=== PATIENT | male | born 1960 | race Caucasian/White ===

== ENCOUNTER 2019-06-01 13:30 | Inpatient (IN) | payer MEDICARE, OTHER ==
[~2019-06-01] VITALS: Ht 162.6 cm; Wt 68.0 kg
[~2019-06-01 13:30] MED LIST: AMPH15TA2 PO; BUPR-51 PO; BUPR150T5 PO; DIPH-530 PO; GABA-532 PO; OXYC-454 PO; QUET25TA PO; TRIA15OI2 TP
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
[2019-06-01] MEDS ORDERED: HYDR-4384 PO (13:50)
[2019-06-01] MEDS ORDERED: BUPR75TA21 PO (13:50)
--- NOTE | 2019-06-01 14:00 | NUR ---
GPS/RN-NOTES DR. REYEZ COVERING FOR DR. HASTINGS MADE AWARE OF PATIENT ADMISSION WITH ORDERS. NOTED AND CARRIED OUT.
[2019-06-01] MEDS ORDERED: LORAZEPAM 0.5 MG TABLET PO PRN (14:30)
[2019-06-01] MEDS ORDERED: TEMAZEPAM 7.5 MG CAPSULE PO PRN (14:30)
[2019-06-01] MEDS ORDERED: BLOOD SUGAR DIAGNOSTIC 1 EACH STRIP IN ONE (14:30)
[2019-06-01] MEDS ORDERED: MAG HYDROX/AL HYDROX/SIMETH 30 ML UDC PO PRN (14:30)
[2019-06-01] MEDS ORDERED: ACETAMINOPHEN 325 MG TABLET PO PRN (14:30)
[2019-06-01] MEDS ORDERED: MAGNESIUM HYDROXIDE 30 ML UDC PO PRN (14:30)
[2019-06-01 16:00] VITALS: BP 118/96
[2019-06-01] MEDS ORDERED: GABAPENTIN 100 MG CAPSULE PO SCH (17:00)
[2019-06-01] MEDS ORDERED: buPROPion 75 MG TABLET PO SCH (17:00)
[2019-06-01] MEDS: HYDROCODONE/APAP 5/325MG 1 EACH TABLET PO PRN (18:13)
[2019-06-01 20:00] VITALS: BP 102/59
[2019-06-01] MEDS: ZOLPIDEM TARTRATE 10 MG TABLET PO PRN (21:10)
--- NOTE | 2019-06-01 21:10 | NUR ---
GPS-RN NOTE: INSOMNIA PATIENT C/O INABILITY TO SLEEP. ADMINISTERED AMBIEN 10MG PO ORDERED PER PATIENT'S REQUEST. WILL CONTINUE TO MONITOR PT'S SAFETY.
[2019-06-02] MEDS: HYDROCODONE/APAP 5/325MG 1 EACH TABLET PO PRN ×3 (05:24→19:30)
--- NOTE | 2019-06-02 05:24 | NUR ---
GPS-RN NOTE: C/O SHOULDER PAIN PATIENT C/O SHOULDER PAIN ON A PAIN SCALE OF 8/10. ADMINISTERED NORCO 5/325MG PO ORDERED PER PT'S REQUEST. WILL CONTINUE TO MONITOR THE EFFECTIVENESS OF THE MEDICATION.
[2019-06-02 07:29] LABS: ALBUMIN 3.7 g/dL (3.4-5.0); BILIRUBIN,TOTAL 0.6 mg/dL (0.2-1.0); CREATININE 0.9 mg/dL (0.6-1.3)
[2019-06-02 07:39] LABS: CHOLESTEROL 217 mg/dL (<200); HDL CHOLESTEROL 52 mg/dL (40-60); LDL 139 mg/dL (0-99); TRIGLYCERIDES 133 mg/dL (30-150)
[2019-06-02 09:09] VITALS: BP 123/87
--- NOTE | 2019-06-02 09:55 | NUR ---
GPS-RN NOTE-NOTES PATIENT C/O SHOULDER PAIN ON 09/20. REQUESTING FOR NORCO.NORCO 5/325MG 1 TAB P.O GIVEN PRN ORDER. WILL CONT. MONITORING FOR SAFETY.
[2019-06-02] MEDS: LORAZEPAM 1 MG TABLET PO PRN (10:50)
--- NOTE | 2019-06-02 10:52 | NUR ---
GPS/RN-NOTES PATIENT STATED" CAN YOU GIVE ME ATIVAN, I'M GETTING ANXIOUS". ATIVAN 1MG P.O GIVEN PRN ORDER. WILL CONT. MONITORING FOR SAFETY AND BEHAVIOR.
--- NOTE | 2019-06-02 11:30 | NUR ---
GPS/RN-NOTES PATIENT WATCHING TV IN THE DAY ROOM ,CALM NO ACUTE DISTRESS NOTED.
[2019-06-02] MEDS ORDERED: buPROPion SR 100 MG TABLET.ER PO SCH (13:00)
[2019-06-02] MEDS: GABAPENTIN 300 MG CAPSULE PO SCH ×2 (13:32→16:52)
[2019-06-02 16:00] VITALS: BP 114/68
[2019-06-02 20:00] VITALS: BP 103/71
[2019-06-02] MEDS: ZOLPIDEM TARTRATE 10 MG TABLET PO PRN (21:21)
[2019-06-02 23:04] VITALS: BP 103/76
[2019-06-03] MEDS: LORAZEPAM 1 MG TABLET PO PRN ×3 (03:15→18:51)
[2019-06-03] MEDS: HYDROCODONE/APAP 5/325MG 1 EACH TABLET PO PRN ×3 (05:41→17:49)
[2019-06-03 08:00] VITALS: BP 120/78
[2019-06-03] MEDS: GABAPENTIN 300 MG CAPSULE PO SCH ×3 (08:13→16:08)
--- NOTE | 2019-06-03 08:54 | NUR ---
GPS RN NOTE: RECEIVED PATIENT AMBULATING WITH STEADY GAIT IN HALLWAY. PAIN 6/10 MANAGED WITH MEDICATION. PATIENT IS COOPERATIVE, CALM, NO SIGNS OF DISTRESS NOTED. COOPERATIVE WITH MEDICATION REGIMEN AND PLAN OF CARE. PATIENT DENIES SI/HI AND VAH. STATES THAT HE IS FEELING BETTER PHYSICALLY AND MENTALLY. ENVIRONMENTAL CHECKS DONE. WILL CONTINUE TO MONITOR PT Q15 FOR MOOD, SAFETY AND BEHAVIOR
[2019-06-03] MEDS ORDERED: buPROPion SR 100 MG TABLET.ER PO SCH (09:00)
[2019-06-03] MEDS ORDERED: buPROPion SR 150 MG TABLET.ER PO SCH ×2 (09:00→21:00)
[2019-06-03] MEDS ORDERED: VITAMINS A AND D 56.7 GM TUBE TP PRN (10:00)
[2019-06-03] MEDS ORDERED: VITAMIN E 56.7 GM JAR TP PRN (10:00)
[2019-06-03 16:00] VITALS: BP 121/72
[2019-06-03] MEDS: buPROPion SR 100 MG TABLET.ER PO SCH (16:57)
[2019-06-03 21:09] VITALS: BP 123/78
[2019-06-04] MEDS: ZOLPIDEM TARTRATE 10 MG TABLET PO PRN ×2 (01:02→21:40)
--- NOTE | 2019-06-04 01:04 | NUR ---
Pt c/o insomnia. Least restrictive measures ineffective. Ambien 10 mg 1 tab po prn given as ordered. Will continue to monitor.
--- NOTE | 2019-06-04 02:02 | NUR ---
Conrado effective. Post 1 hour pt asleep in bed easy to arouse. Will continue to monitor.
[2019-06-04] MEDS: LORAZEPAM 1 MG TABLET PO PRN ×2 (03:07→10:14)
--- NOTE | 2019-06-04 03:11 | NUR ---
Pt c/o of anxiety. Least restrictive measures ineffective. Ativan 1 mg po prn given as ordered. Will continue to monitor.
--- NOTE | 2019-06-04 04:11 | NUR ---
Post 1 hour Ativan effective. Pt calm and asleep in bed easy to arouse. Will continue to monitor.
[2019-06-04] MEDS: HYDROCODONE/APAP 5/325MG 1 EACH TABLET PO PRN ×3 (06:50→16:03)
--- NOTE | 2019-06-04 06:52 | NUR ---
Pt c/o right shoulder pain 09/20. [place] 5/325 mg po prn given as ordered. Will continue to monitor.
[2019-06-04 08:00] VITALS: BP 120/84
[2019-06-04] MEDS: GABAPENTIN 300 MG CAPSULE PO SCH ×3 (08:36→16:03)
[2019-06-04] MEDS: buPROPion SR 100 MG TABLET.ER PO SCH (08:36)
--- NOTE | 2019-06-04 12:47 | NUR ---
Initial Discharge Plan: Pt is currently homeless and states that he requires placement. SW will work with the pt and the MD regarding appropriate discharge planning. SW will form a safe and proper discharge plan.
--- NOTE | 2019-06-04 15:14 | NUR ---
Group Note: SW encouraged the pt to participate in group therapy on 06/04/19 at 2pm discussing discharge planning. Pt presented in his room, on his bed, and was asleep. Pt stated that he did not want to participate because he wanted to get some sleep as he was having difficulty with it. Pt stated that he already spoke to the SW earlier today when she conducted the psychosocial that he needs a place to stay at and that he would accept correction placement.
[2019-06-04 16:00] VITALS: BP 116/69
[2019-06-04 20:12] VITALS: BP 127/84
--- NOTE | 2019-06-04 21:41 | NUR ---
GPS RN NOTES: INSOMNIA UPON DOING ROUNDS, PT AWAKE. PT STATED, "I CANT SLEEP. CAN I HAVE A SLEEPING MEDICATION?" OFFERED AMBIEN 10MG PO PRN ORDERED. PT AGREED AND TOLERATED MEDICATION WELL. CONTINUE TO MONITOR.
[2019-06-05 00:45] VITALS: BP 116/92
[2019-06-05] MEDS: HYDROCODONE/APAP 5/325MG 1 EACH TABLET PO PRN ×4 (00:55→17:58)
--- NOTE | 2019-06-05 00:58 | NUR ---
GPS RN NOTE: C/O SHOULDER PAIN PATIENT C/O SHOULDER PAIN ON A PAIN SCALE OF 9/10. PT REQUESTED "PAIN MEDICATION". CHECKED VITALS WHICH IS WNL. OFFERED NORCO 5/325 MG PO PRN ORDERED. ADMINISTERED MEDICATION PER PT'S REQUEST. WILL CONTINUE TO MONITOR THE EFFECTIVENESS OF THE MEDICATION.
[2019-06-05] MEDS: LORAZEPAM 1 MG TABLET PO PRN ×3 (04:35→20:12)
--- NOTE | 2019-06-05 04:36 | NUR ---
GPS RN NOTES: ANXIOUS PT C/O FEELING ANXIOUS. PT STATED, " I NEED MY ATIVAN." VITALS TAKEN AND WNL. NO S/S OF RESP DISTRESS. BREATHING EVEN AND UNLABORED. NO S/S OF SOB. OFFERED ATIVAN 1MG PO PRN ORDERED. PT AGREED AND TOLERATED MEDICATION WELL. CONTINUE TO MONITOR.
[2019-06-05 08:00] VITALS: BP 126/79
[2019-06-05] MEDS: GABAPENTIN 300 MG CAPSULE PO SCH ×3 (08:24→16:34)
[2019-06-05] MEDS: buPROPion SR 100 MG TABLET.ER PO SCH (08:24)
--- NOTE | 2019-06-05 09:51 | NUR ---
GPS RN NOTE: RECEIVED PATIENT AMBULATING WITH STEADY GAIT IN HALLWAY. PAIN 8/10 MANAGED WITH MEDICATION. PATIENT IS COOPERATIVE, CALM, NO SIGNS OF DISTRESS NOTED BUT EASILY IRRITATED. COOPERATIVE WITH MEDICATION REGIMEN AND PLAN OF CARE. PATIENT DENIES SI/HI AND VAH. SHOWERED THIS MORNING AND PERFORMED AM CARE. WELL GROOMED. ENVIRONMENTAL CHECKS DONE. WILL CONTINUE TO MONITOR PT Q15 FOR MOOD, SAFETY AND BEHAVIOR
--- NOTE | 2019-06-05 10:20 | NUR ---
Substance Abuse Intervention: SW conducted a substance abuse intervention with the pt regarding his cannabis use.
--- NOTE | 2019-06-05 10:47 | NUR ---
SNF Referral: DONALD faxed a referral to [facility] with attn to Kimberlee to the fax number: [phone].
--- NOTE | 2019-06-05 15:32 | NUR ---
SNF Contact: Shirin ([phone]) from [facility] contacted the and stated that the facility is full at this time.
--- NOTE | 2019-06-05 15:35 | NUR ---
Group Note: SW encouraged the pt to participate in group therapy on 06/05/19 at 2pm discussing urges. Pt stated that he did not want to participate in group and that he was worried about his belongings from the previous hospital. SW stated that she had called and is waiting for a response. SW asked the pt to discuss any of his urges and he stated that he had suicidal urges to take his life and he has urges to take drugs but at this time he does not feel that way anymore.
[2019-06-05 16:00] VITALS: BP 132/87
--- NOTE | 2019-06-05 17:12 | NUR ---
RN-CO: We tried to contact/trace patient's belongings in [facility] [phone]. They said to call back tomorrow.
[2019-06-05 20:00] VITALS: BP 130/77
[2019-06-05 20:12] VITALS: BP 130/77
--- NOTE | 2019-06-05 20:14 | NUR ---
GPS RN notes Pt is feeling anxious and requesting ativan. Administered ativan 1 mg as ordered for anxiety per Pt request. VS is stable. Safety precautions is maintained. Will continue to monitor.
--- NOTE | 2019-06-05 23:05 | NUR ---
GPS RN notes Transfer of care to [facility].
--- NOTE | 2019-06-05 23:10 | NUR ---
GPS RN OPENING NOTE RECEIVED REPORT FROM [facility]. TOLERATING ROOM AIR. NO S/S OF PAIN. NO DISTRESS NOTED. PATIENT CURRENTLY ASLEEP. WILL CONTINUE TO MONITOR.
--- NOTE | 2019-06-05 23:50 | NUR ---
TRANSFER OF CARE TO [facility].
--- NOTE | 2019-06-05 23:51 | NUR ---
GPS RN notes Received Pt back from [facility].
[2019-06-05] MEDS: ZOLPIDEM TARTRATE 10 MG TABLET PO PRN (23:53)
[2019-06-06] MEDS: HYDROCODONE/APAP 5/325MG 1 EACH TABLET PO PRN ×4 (04:40→20:53)
--- NOTE | 2019-06-06 04:44 | NUR ---
GPS RN notes Pt is complaining of pain on right shoulder and requesting pain medication. Administered norco5-325mg/1 tab/po as ordered for pain. Safety precautions is maintained. Will continue to monitor.
[2019-06-06 08:00] VITALS: BP 121/74
[2019-06-06] MEDS: MULTIVIT W/MINERALS 1 TAB TABLET PO SCH (08:21)
[2019-06-06] MEDS: GABAPENTIN 300 MG CAPSULE PO SCH ×3 (08:21→16:01)
[2019-06-06] MEDS: buPROPion SR 100 MG TABLET.ER PO SCH ×2 (08:21→16:01)
[2019-06-06] MEDS: ASCORBIC ACID 500 MG TABLET PO SCH (08:21)
--- NOTE | 2019-06-06 08:41 | NUR ---
GPS RN NOTE: RECEIVED PATIENT SITTING IN HALLWAY WITH NO SIGNS OF ACUTE DISTRESS. PAIN 6/10. ALLEVIATED WITH HOT PACK AND MEDICATION. PATIENT RESPIRATIONS EVEN AND UNLABORED. BLOOD DRAWN THIS AM FOR THYROID STIMULATING HORMONE. PATIENT IS EASILY IRRITATED AND ANGERED. RUMINATING AND NEGATIVE. UPSET ABOUT BELONGINGS LEFT BEHIND AT PREVIOUS HOSPITAL. ENVIRONMENTAL CHECKS DONE. WILL CONTINUE TO MONITOR PATIENT Q15 FOR MOOD, SAFETY AND BEHAVIOR.
--- NOTE | 2019-06-06 09:23 | NUR ---
SNF Referral: DONALD faxed a referral to [facility] with attn to BANDAR and Edson to the fax number: [phone].
[2019-06-06] MEDS: LORAZEPAM 1 MG TABLET PO PRN (12:56)
--- NOTE | 2019-06-06 12:56 | NUR ---
GPS RN NOTE: ANXIETY PATIENT IRRITABLE AND ANXIOUS. REQUESTED ATIVAN. ADMINISTERED 1MG PO ORDERED. WILL CONTINUE TO MONITOR Q15 FOR MOOD, SAFETY AND BEHAVIOR
[2019-06-06 16:00] VITALS: BP 122/82
[2019-06-06 20:26] VITALS: BP 117/88
[2019-06-07] MEDS: ZOLPIDEM TARTRATE 10 MG TABLET PO PRN (00:14)
--- NOTE | 2019-06-07 00:16 | NUR ---
GPS RN NOTES: INSOMNIA UPON DOING ROUNDS, PT AWAKE. PT STATED, "CAN I HAVE A SLEEPING MEDICATION?" OFFERED AMBIEN 10MG PO PRN ORDERED. PT AGREED AND TOLERATED MEDICATION WELL. CONTINUE TO MONITOR.
[2019-06-07] MEDS: LORAZEPAM 1 MG TABLET PO PRN ×2 (04:26→12:11)
--- NOTE | 2019-06-07 04:30 | NUR ---
GPS RN NOTES: ANXIOUS UPON DOING ROUNDS, PT TELLING ROOMMATE, "BE QUIET!" PT C/O FEELING ANXIOUS BECAUSE ROOMMATE IS MAKING "NOISE". PT STATED, " CAN I HAVE AN ATIVAN PLEASE?" NO S/S OF RESP DISTRESS. BREATHING EVEN AND UNLABORED. NO S/S OF SOB. OFFERED ATIVAN 1MG PO PRN ORDERED. PT AGREED AND TOLERATED MEDICATION WELL. CONTINUE TO MONITOR.
[2019-06-07 08:00] VITALS: BP 100/66
--- NOTE | 2019-06-07 08:00 | NUR ---
RECEIVED PATIENT LAYING IN BED AWAKE. PT IS CALM AT THIS TIME, NEEDY, AND QUIET. NO ACUTE DISTRESS NOTED. BREATHING EVEN AND UNLABORED.NO S/S OF SOB.NEEDS ATTENDED AND ANTICIPATED. AMBULATORY STEADY GAIT. NO SI OR HI AT THIS TIME. CALL [facility] WITHIN REACH. WILL CONT. MONITORING Q15 MINS. FOR SAFETY AND BEHAVIOR.
[2019-06-07] MEDS: buPROPion SR 100 MG TABLET.ER PO SCH ×2 (08:49→16:12)
[2019-06-07] MEDS: MULTIVIT W/MINERALS 1 TAB TABLET PO SCH (08:50)
[2019-06-07] MEDS: ASCORBIC ACID 500 MG TABLET PO SCH (08:50)
[2019-06-07] MEDS: GABAPENTIN 300 MG CAPSULE PO SCH ×3 (08:50→16:11)
--- NOTE | 2019-06-07 09:00 | NUR ---
PT WAS ASKING IF WHO IS HIS SLAVE FOR TODAY.EXPLAINED CALMLY THAT HE HAS NO SLAVE FOR TODAY. PT KEEPS WALKING ALONG THE HALLWAY.PT C/O HE HAS BROKEN COLLARBONE NEEDING STRONG PAIN MEDS.PT'S BP WAS LOW AND EXPLAINED THAT WE CAN GIVE HIM TYLENOL 650 MG PO BUT PT WANTS NORCO INSTEAD AND STARTED GETTING ANGRY IN THE HALLWAY.WILL APPROACH HIM LATER WHEN HE CALMS DOWN.
[2019-06-07] MEDS: HYDROCODONE/APAP 5/325MG 1 EACH TABLET PO PRN ×2 (09:24→10:47)
--- NOTE | 2019-06-07 09:52 | NUR ---
Facility Contact: SW received a call from Dai from [facility] ([phone]; fax: [phone]) who stated that the pt was accepted and can be discharged today after 3pm.
--- NOTE | 2019-06-07 11:37 | NUR ---
Facility Contact: DONALD faxed a COVID clearance to [facility] to their fax number: [phone]
--- NOTE | 2019-06-07 12:56 | NUR ---
RN-CO: DR REYEZ covering for Dr Aviles ordered to discharge patient and discontinue hold.
--- NOTE | 2019-06-07 15:16 | NUR ---
Discharge Note: Pt was discharged to [facility] located at [address] [place] [id number]; ([phone]). Pt was transported via [facility] at 4PM. There was no one to notify regarding the pts discharge. Upon discharge, the pt appeared to be in a dysphoric mood and presented with a distressed affect. Pt appeared to be ambulatory with a steady gait. Pt was provided with clothes and appeared to be appropriately dressed and well groomed. Pt appeared to be alert and oriented x4 (time, place, self and situation). Pt denied both suicidal and homicidal ideation as well as auditory and visual hallucinations. Pt was provided with homeless resources such as shelters, food painter, hot meals, showers, smoking cessation referrals, mental and physical health clinics and substance abuse referrals. Pt will be under the care of psychiatrist, Dr. Hatfield, located at [address], [place] [address]; and will be under the care of his vegetable scullion, Dr. Nix, located at [address] [place] [id number]; . Pt signed the homeless waiver as well as the choice of vendor form.
[2019-06-07 16:00] VITALS: BP 113/78
== END 2019-06-07 16:18 | DRG 885 ==
LOC: GPS 13:30
PROVIDERS: ADMIT Psychiatry & Neurology Psychosomatic Medicine; ATTEND Nurse Practitioner Acute Care
DX: F32.1 Major depressive disorder, single episode, moderate (principal); F43.10 Post-traumatic stress disorder, unspecified; Z59.0 Homelessness; F17.210 Nicotine dependence, cigarettes, uncomplicated; G89.29 Other chronic pain; F29 Unspecified psychosis not due to a substance or known physiological condition; F19.90 Other psychoactive substance use, unspecified, uncomplicated
CPT/HCPCS: 36415; 80053-TC; 80061-TC; 82962-TC; 84443-TC; 87081-TC